=== PATIENT | female | born 1945 | race Caucasian/White ===

== ENCOUNTER 2018-12-20 07:16 | Inpatient (IN) | payer MEDICARE, OTHER ==
[2018-12-20] MEDS ORDERED: Propofol 1,000 MG/100 ML VIAL IV ONE (07:32)
[2018-12-20 07:42] LABS: Actual Bicarbonate (HCO3a) 24.7 mEq/L (22-28); Analyzer IN Cardio ER; Base Excess (BEa) -0.2 mEq/L (-2.0 to +3.0); CO2 Tension 41.1 mmHg (35.0-45.0); Calcium, Ionized 1.19 mmol/L (1.12-1.30); Carboxyhemoglobin (COHb) 3.7 gm% (0.0-3.0); O2 Tension (PaO2) 127.8 mmHg (> 70.0); Potassium - ABG Lab 4.06 mmol/L (3.70-5.30); Puncture Site LRA
[2018-12-20 07:43] LABS: ALV-art Gradient 20.465 (0-20)
[2018-12-20 07:44] LABS: #Eosinphils 0.1 thou/uL (0.0-0.7); #Monocytes 0.5 thou/uL (0.11-0.59); #Neutrophils 11.1 thou/uL (1.40-6.50); %Eosinophils 0.8 % (0.0-10.0); %Lymphocytes 7.5 % (21.0-51.0); %Monocytes 3.6 % (0.0-10.0); %Neutrophils 88.1 % (42.0-75.0); Hemoglobin 12.2 g/dL (12.0-16.0); Mean Corpuscular HGB CONC 31.4 g/dL (32.0-36.0); Mean Corpuscular Hemoglobin 26.2 pg (27.0-31.0); Mean Corpuscular Volume 83.4 fL (78.0-98.0); Mean Platelet Volume 8.3 fL (7.4-10.4); Platelet Count 230 thou/uL (130-400); RBC Distribution Width 17.2 % (11.5-14.5); Red Blood Cell (RBC) Count 4.67 mill/uL (4.20-5.40); White Blood Cell (WBC) Count 12.6 thou/uL (4.8-10.8)
--- NOTE | 2018-12-20 07:51 | RAD ---
RADIOGRAPH CHEST 1 VIEW: DATE: 12/20/2018 TIME: 7:17 AM HISTORY: 73-year-old female in respiratory failure status post intubation COMPARISON: none FINDINGS: Endotracheal tuber distal tip is approximately 0.5 cm into the right mainstem bronchus. There is tota l opacification of the right upper lobe with superior retraction of the right hilum. There is right hilum enlargement. Tracheal mediastinal shift to the right. No consolidation at the right lower lung zone. Left lung is relatively clear. No cardiomegaly. Left IJ implantable vascular access port distal tip at upper portion of right atrium. NG tube courses through the stomach. No pneumothorax. IMPRESSION: 1. Status post intubation with endotracheal tube at origin of right mainstem bronchus. 2. Total opacification and volume loss of entire right upper lobe. Uncertain how much of this is lunchroom monitor paul and how much is acute, without prior studies for comparison. 3. Possible right hilar mass. 4. Implantable vascular access port. 5. Esophagogastric tube. 6. Left lung is clear.
[2018-12-20] MEDS ORDERED: Fentanyl 100 MCG/2 ML VIAL ONE (07:54)
[2018-12-20] MEDS ORDERED: fentaNYL Citrate/PF 2,000 MCG in Sodium Chloride 0.9% 60 ML IV SCH ×2 (07:59→11:07)
[2018-12-20 08:01] LABS: ALT (SGPT) 89 U/L (8-55); AST (SGOT) 143 U/L (5-34); Albumin 3.4 g/dL (3.4-4.8); Alkaline Phosphatase 111 U/L (40-150); Anion Gap 13 mmol/L (10-20); BUN (Urea Nitrogen) 21 mg/dL (9.8-20.1); Bilirubin, Total 0.2 mg/dL (0.2-1.2); Calc. Creatinine Clearance 0 mL/min (70-130); Calcium 8.7 mg/dL (7.8-10.44); Carbon Dioxide 25 mmol/L (23-31); Chloride 104 mmol/L (98-107); Estimated GFR-MDRD 64; Globulin 2.5 g/dL (2.4-3.5); Glucose 233 mg/dL (83-110); Potassium 4.2 mmol/L (3.5-5.1); Protein, Total 5.9 g/dL (6.0-8.3); Sodium 138 mmol/L (136-145)
[2018-12-20] MEDS ORDERED: methylPREDNISolone Sod Succ/PF 125 MG/2 ML VIAL ONE (08:06)
[2018-12-20] MEDS ORDERED: Lorazepam 2 MG/ML VIAL ONE (08:39)
[2018-12-20] MEDS ORDERED: Albuterol Sulfate 2.5 mg/0.5 ml Neb ONE (08:42)
[2018-12-20] MEDS ORDERED: Albuterol Sulfate 2.5 mg/3 ml Neb ONE ×2 (08:42)
[2018-12-20] MEDS ORDERED: Ondansetron PF 4 MG/2 ML Vial IVP PRN (11:01)
[2018-12-20] MEDS ORDERED: Acetaminophen 325 MG TAB PO PRN (11:01)
[2018-12-20] MEDS ORDERED: Ondansetron ODT 4 MG TAB SL PRN (11:01)
[2018-12-20] MEDS ORDERED: Propofol 1,000 MG/100 ML VIAL IV PRN (11:07)
[2018-12-20] MEDS ORDERED: Propofol BOLUS 1,000 MG/100 ML VIAL IV PRN (11:07)
[2018-12-20] MEDS ORDERED: Fentanyl BOLUS 250 ML IVPB PRN (11:07)
[2018-12-20] MEDS ORDERED: Morphine 2 MG/ML SYRINGE SLOW IVP PRN (11:07)
[2018-12-20] MEDS ORDERED: Ventilator Sedation Protocol 1 EACH FS ONE (11:11)
--- NOTE | 2018-12-20 11:24 | RAD ---
XR Chest 1 View Portable History: Endotracheal tube placement Comparison: Radiograph same day Findings: Endotracheal tube appears to been pulled back slightly above the tiffanie 9 mm. Similar appearance with appears be a large right hilar mass. Volume loss right upper lobe. Left lung relatively clear. Port catheter tip right atrium. Impression: Degenerative tip 9 mm above the tiffanie. Consider retracting 1 cm.
[2018-12-20] MEDS: Sodium Chloride 0.45% 1,000 ML IV SCH (11:45)
[2018-12-20] MEDS ORDERED: methylPREDNISolone Sod Succ 40 MG VIAL IVP SCH (12:00)
[2018-12-20] MEDS ORDERED: methylPREDNISolone Sod Succ/PF 125 MG/2 ML VIAL IVP SCH (12:00)
[2018-12-20] MEDS: Piperacillin/Tazobactam 3.375 GM in Sodium Chloride 0.9% 100 ML IVPB SCH ×2 (12:12→17:24)
[2018-12-20] MEDS: methylPREDNISolone Sod Succ 40 MG VIAL IVP SCH ×2 (12:34→17:30)
--- NOTE | 2018-12-20 14:38 | CON ---
DATE OF CONSULTATION: 12/20/2018 HISTORY OF PRESENT ILLNESS: Laura Ruiz is a 73-year-old female. Apparently, she is followed at [facility] with her oncologist. She presented with respiratory failure, was intubated. I was consulted because of her presence in the Critical Care Unit. She has never been in the hospital here before. PAST MEDICAL HISTORY: Remarkable for: 1. Lung cancer. 2. History of COPD. It is unknown whether she has an other past medical history. SOCIAL HISTORY: She is continuing to smoke reportedly. ALLERGIES: SHE HAS NO REPORTED ALLERGIES. FAMILY HISTORY: Unknown. REVIEW OF SYSTEMS: Not obtainable. She has no family at the bedside. PHYSICAL EXAMINATION: VITAL SIGNS: Heart rate is 84, respiratory rate is per mechanical ventilation, blood pressure is 99/64. HEENT: Pupils are equal. Sclerae are anicteric. NECK: Supple. LUNGS: Remarkable for distant wheezes, long expiratory phase. HEART: Regular rhythm. S1 and S2 are normal. ABDOMEN: Soft and nontender. EXTREMITIES: Without clubbing, cyanosis, or edema. She is sedated for ventilation. LABORATORY DATA: White count 12.6, hemoglobin 12.2, and platelets 230. PH 7.4 , CO2 of 41, and pO2 of 127. Sodium 138, potassium 4.2, chloride 104, bicarb 25, BUN 29, creatinine 0.87, AST is 143, ALT is 89, and alkaline phosphatase is 111. BNP is 229. IMPRESSION: 1. Respiratory failure secondary to chronic obstructive pulmonary disease exacerbation. 2. History of lung cancer. Chest radiograph shows dense atelectasis of the right upper lobe. Her radiograph has the appearance of the lung that has been radiated in the right hilar area. Try to obtain records from [facility]. 3. Ongoing tobacco use. 4. Elevated liver enzymes of unclear etiology. Obviously, metastatic disease is in the differential, but it is not a clinical issue at this time. I will be happy to follow the other physicians caring for. CRITICAL CARE TIME: 30 minutes. Job ID: [id number] MTDD
--- NOTE | 2018-12-20 16:38 | HP ---
PRIMARY CARE PROVIDER: [facility]. CHIEF COMPLAINT: Shortness of breath. HISTORY OF PRESENT ILLNESS: Ms. Ruiz is a 73-year-old lady, who was seen at [facility] on December 20, 2018. Please note, the patient is currently intubated and mechanically ventilated. Therefore, I could not obtain history from the patient. Collateral history was obtained from review of medical records and discussion with emergency room physician. Ms. Ruiz is followed at [facility] and has never been at this facility. She reportedly was lethargic today morning. She took 2 prednisone tablets around 05:45 a.m., because she was feeling short of breath. The patient was reportedly doing well yesterday. She complained of generalized weakness. When EMS arrived, the patient had [place] Coma Scale of 11 and was not responsive. She was intubated and brought to the emergency room. REVIEW OF SYSTEMS: Could not be completed secondary to the patient's nonverbal status. PAST MEDICAL HISTORY: COPD and lung cancer. SURGICAL HISTORY: Unable to obtain. SOCIAL HISTORY: The patient is reportedly a current smoker. Could not obtain information regarding alcohol and recreational drug use. CODE STATUS: Could not be discussed secondary to the patient's nonverbal status. FAMILY HISTORY: Could not obtain. ALLERGIES: 1. ASPIRIN. 2. PENICILLIN. CURRENT MEDICATIONS: Could not be obtained. PHYSICAL EXAMINATION: GENERAL: On examination, Ms. Ruiz is intubated and mechanically ventilated, not in acute distress. VITAL SIGNS: Blood pressure is 106/58, pulse 74, respiratory rate 16, and oxygen saturation 100% on the ventilator. She is afebrile. EYES: No scleral icterus. No conjunctival pallor. ENT: Endotracheal tube in place. Moist mucosal membranes. RESPIRATORY: Accessory muscles of breathing are not active. Chest wall movements are symmetric bilaterally. She has diffuse expiratory wheeze. CARDIOVASCULAR: S1 and S2 are heard, regular. Peripheral pulses are palpable. NEUROLOGIC: Full neurologic examination was not possible secondary to the patient's noncooperation. There is no facial droop. No spontaneous movements of the 4 extremities. Deep tendon reflexes 2+, plantars downgoing bilaterally. MUSCULOSKELETAL: No spontaneous movements in the upper or lower extremities. The patient has swelling of the right lower extremity. SKIN: No rashes or subcutaneous nodules. She does have a left-sided port. LYMPHATIC: No cervical lymphadenopathy. PSYCHIATRIC: Unable to assess mood, affect, or orientation to person, place, or time. LABORATORY DATA: Ms. Ruiz' labs and investigations were reviewed. I reviewed her electrocardiogram, which shows sinus tachycardia, no ST changes to suggest an acute coronary syndrome. I also reviewed her chest x-ray, which showed total opacification and volume loss of entire right upper lobe as well as possible right hilar mass. She has leukocytosis with 12,600 white cells, of which 88.1% are neutrophils. Hemoglobin and platelet counts are normal. Arterial blood gases show pH of 7.4, pCO2 of 41, and pO2 of 127.8. She has normal sodium, normal potassium, elevated blood urea nitrogen of 21, normal creatinine, elevated AST of 143, elevated ALT of 89, normal total bilirubin, normal alkaline phosphatase, and mildly elevated BNP of 229. ASSESSMENT AND PLAN: Ms. Ruiz is a 73-year-old lady, who was seen at [facility] on December 20, 2018. Her problem list includes: 1. Acute respiratory failure: Ms. Ruiz is presenting with acute respiratory failure, most likely secondary to chronic obstructive pulmonary disease exacerbation. She will be admitted to the critical care unit for further management. 2. Chronic obstructive pulmonary disease exacerbation: The patient has been started on steroids, bronchodilators, and antibiotics in the form of Zosyn, which I will continue. 3. Lower extremity swelling: The patient has swelling of the right lower extremity. We will check ultrasound Dopplers to rule out deep vein thrombosis. 4. History of tobacco use: The patient will be started on nicotine replacement therapy. 5. Abnormal liver function tests: The patient has isolated transaminitis. We will check CK level to ensure that there is no muscular damage. Many thanks for allowing me to participate in your patient's care. Please feel free to contact me with any questions or concerns. LEVEL OF RISK: High. LEVEL OF COMPLEXITY: High. Job ID: [id number]
--- NOTE | 2018-12-20 17:39 | ULT ---
Exam: Right lower extremity venous ultrasound with Doppler HISTORY: Edema. COMPARISON: None TECHNIQUE: Grayscale, color flow, Doppler imaging with spectral waveform is performed in the right lo wer extremity venous system FINDINGS: There is compressibility, presence of flow and augmentation in the common femoral vein, femoral vein and popliteal vein. There is flow in the greater saphenous vein, profunda vein. Limited evaluation the posterior tibial vein IMPRESSION: Limited evaluation of the posterior tibial vein. Visualized right lower extremity deep ve nous system does not demonstrate thrombosis.
[2018-12-20] MEDS: Enoxaparin Sodium 40 MG/0.4 ML SYRINGE SC SCH (20:23)
[2018-12-21] MEDS: methylPREDNISolone Sod Succ 40 MG VIAL IVP SCH ×5 (00:10→23:32)
[2018-12-21] MEDS: Piperacillin/Tazobactam 3.375 GM in Sodium Chloride 0.9% 100 ML IVPB SCH ×5 (00:10→23:32)
[2018-12-21] MEDS: Sodium Chloride 0.45% 1,000 ML IV SCH ×2 (04:01→15:00)
[2018-12-21 05:08] LABS: Anion Gap 11 mmol/L (10-20); BUN (Urea Nitrogen) 22 mg/dL (9.8-20.1); Calc. Creatinine Clearance 82 mL/min (70-130); Calcium 8.3 mg/dL (7.8-10.44); Carbon Dioxide 27 mmol/L (23-31); Chloride 104 mmol/L (98-107); Estimated GFR-MDRD 75; Glucose 152 mg/dL (83-110); Sodium 138 mmol/L (136-145)
[2018-12-21 05:09] LABS: Band 10 % (5-11); Hemoglobin 10.8 g/dL (12.0-16.0); Lymphocytes 7 % (21-51); MDiff Complete? YES; Mean Corpuscular HGB CONC 31.9 g/dL (32.0-36.0); Mean Corpuscular Hemoglobin 26.2 pg (27.0-31.0); Mean Corpuscular Volume 82.3 fL (78.0-98.0); Mean Platelet Volume 8.2 fL (7.4-10.4); Monocytes 2 % (0-10); Neutrophil 80 % (42-75); Platelet Count 202 thou/uL (130-400); Reactive Lymphocytes 1 % (0-10); Red Blood Cell (RBC) Count 4.11 mill/uL (4.20-5.40); White Blood Cell (WBC) Count 7.8 thou/uL (4.8-10.8)
[2018-12-21 08:11] LABS: Actual Bicarbonate (HCO3a) 25.6 mEq/L (22-28); Base Excess (BEa) 0.4 mEq/L (-2.0 to +3.0); CO2 Tension 43.7 mmHg (35.0-45.0); Calcium, Ionized 1.13 mmol/L (1.12-1.30); Carboxyhemoglobin (COHb) 0.9 gm% (0.0-3.0); Hemoglobin (Hb) 11.8 g/dL (12.0-16.0); O2 Tension (PaO2) 141.3 mmHg (> 70.0); Potassium - ABG Lab 4.05 mmol/L (3.70-5.30); pH, Arterial 7.39 (7.35-7.45)
--- NOTE | 2018-12-21 08:16 | RAD ---
Exam: Chest one view: HISTORY: Respiratory insufficiency COMPARISON: 12/20/2018 FINDINGS: Persistent volume loss and pleural changes in the right chest. Left subclavian catheter, NG tube, and endotracheal tube remain in place. IMPRESSION: Persistent pleural changes and volume loss in the right chest with stable left support tubes. Continu ed short-term follow-up.
[2018-12-21 08:18] LABS: ALV-art Gradient 89.275 (0-20); Puncture Site RRA
[2018-12-21] MEDS: Nicotine 21 MG PATCH TD SCH (08:41)
[2018-12-21] MEDS ORDERED: Famotidine/PF 20 mg/2ml Vial SLOW IVP SCH (09:00)
--- NOTE | 2018-12-21 09:58 | PRG ---
DATE OF SERVICE: 12/21/2018 SUBJECTIVE: Joseph is sedated for ventilation. OBJECTIVE: VITAL SIGNS: Heart rate is in the 90s, blood pressure 140/82, respiratory rate is per mechanical ventilation, and oximetry is 98. HEENT: Pupils react. NECK: Supple. LUNGS: Distant. HEART: Regular rhythm. S1 and S2 are normal. ABDOMEN: Soft and nontender. EXTREMITIES: Without clubbing, cyanosis, or edema. LABORATORY DATA: White count 7.8, hemoglobin 10.8, and platelets 202. A pH 7.39, CO2 of 43, pO2 of 141, IMV is 16, tidal volume is 500, FiO2 is 40, PEEP of 5, and pressure support of 10. Sodium 138, potassium 4, chloride 104, bicarb 27, BUN 22, creatinine 0.76, and glucose 152. Chest x-ray still shows right upper lobe collapse. IMPRESSION: 1. Lung cancer, presumably status post radiation chemotherapy. We still have not received records from [facility]. 2. Chronic obstructive pulmonary disease with respiratory failure. It is not clear to me what her functional status is. 3. Lower extremity edema, that is asymmetrical, the right lower extremity was larger, so an ultrasound was ordered yesterday by the hospitalist, which did not show any evidence of clots. PLAN: We will continue to follow. She is currently non-weanable. We will try tomorrow to start decreasing ventilatory support and allowing to wake up. Precedex has been added to her sedation today. Critical care is 35 minutes. Job ID: [id number] MTDD
[2018-12-21] MEDS: Lorazepam 2 MG/ML VIAL SLOW IVP PRN (12:11)
--- NOTE | 2018-12-21 20:04 | PDOC.PN ---
- Subjective Encounter Start Date: 12/21/18 Encounter Start Time: 20:00 Subjective: f/u for resp failure likely due to COPD exacerbation on [facility] ventilation. - Objective MAR Reviewed: Yes Vital Signs & Weight: Vital Signs (12 hours) Temp Pulse Resp BP Pulse Ox 12/21/18 20:00 97.7 F 12/21/18 18:10 75 166/87 H 12/21/18 18:00 16 12/21/18 16:00 98.4 F 16 98 12/21/18 14:50 84 168/94 H 12/21/18 14:48 81 16 98 12/21/18 14:00 16 12/21/18 12:00 98.2 F 21 H 12/21/18 10:37 103 H 150/82 H 12/21/18 10:23 89 16 99 12/21/18 10:00 20 Weight Admit Weight 171 lb 1.259 oz Weight 169 lb 5.04 oz Most Recent Monitor Data Heart Rate from ECG 80 NIBP 162/81 NIBP BP-Mean 108 Respiration from ECG 18 SpO2 98 I&O: 12/20/18 12/21/18 12/22/18 06:59 06:59 06:59 Intake Total 1476.4 1877 Output Total 1040 900 Balance 436.4 977 Result Diagrams: 12/21/18 04:22 12/21/18 04:22 Additional Labs: Microbiology 12/20/18 07:43 Urine voided Urine Culture - Preliminary NO GROWTH AT 24 HOURS Laboratory Tests 12/20/18 12/20/18 12/20/18 07:23 07:23 07:23 WBC 12.6 H AST 143 H ALT 89 H B-Natriuretic Peptide 229.7 H Radiology Reviewed by me: Yes (PCXR - volume loss R lung field) EKG Reviewed by me: Yes (Tele - SR) Phys Exam - Physical Examination Constitutional: NAD sedate on [facility] ventilation ETT in places Neck: no nodes, no JVD, supple, full ROM diminished in bases, occasional exp wheeze S1, S2 Cardiovascular: RRR, no significant murmur, no rub, gallop Gastrointestinal: soft, non-tender, no distention, positive bowel sounds Musculoskeletal: pulses present Neurological: moves all 4 limbs Skin: normal turgor, cap refill <2 seconds Dx/Plan (1) Acute respiratory failure with hypoxia Code(s): J96.01 - ACUTE RESPIRATORY FAILURE WITH HYPOXIA Status: Acute Comment: Continue mech ventilation, wean as clinically indicated, sedation per protocol (2) COPD exacerbation Code(s): J44.1 - CHRONIC OBSTRUCTIVE PULMONARY DISEASE W (ACUTE) EXACERBATION Status: Acute Comment: Continue Zosyn, Solumedrol and Duonebs, wean off mech ventilation as clinically indicated (3) Lung cancer Code(s): C34.90 - MALIGNANT NEOPLASM OF UNSP PART OF UNSP BRONCHUS OR LUNG Status: Chronic Qualifiers: Laterality: right Comment: Currently receiving treatment through [facility] system, will return for follow up when resp status stabilizes (4) Tobacco abuse Code(s): Z72.0 - TOBACCO USE Status: Chronic Comment: Tobacco cessation resources - Plan continue antibiotics, social service manager, respiratory therapy, DVT proph w/SCDs Continue pulmonary supportive mgmt -: Continue Duonebs, Solumedrol and Zosyn -: Sedation with Precedex -: Plan for coordination of transfer to [facility] due to insurance coverage at that -: facility * AM lab: BMP, CBC
[2018-12-21] MEDS: Enoxaparin Sodium 40 MG/0.4 ML SYRINGE SC SCH (20:51)
[2018-12-21] MEDS: Famotidine/PF 20 mg/2ml Vial SLOW IVP SCH (20:51)
[2018-12-22] MEDS: Lorazepam 2 MG/ML VIAL SLOW IVP PRN ×3 (01:07→11:59)
[2018-12-22] MEDS: Sodium Chloride 0.45% 1,000 ML IV SCH ×2 (04:29→17:34)
[2018-12-22 04:36] LABS: Anion Gap 12 mmol/L (10-20); BUN (Urea Nitrogen) 25 mg/dL (9.8-20.1); Calc. Creatinine Clearance 82 mL/min (70-130); Calcium 8.9 mg/dL (7.8-10.44); Carbon Dioxide 27 mmol/L (23-31); Chloride 105 mmol/L (98-107); Estimated GFR-MDRD 75; Glucose 208 mg/dL (83-110); Potassium 3.8 mmol/L (3.5-5.1); Sodium 140 mmol/L (136-145)
[2018-12-22 05:07] LABS: Band 5 % (5-11); Hemoglobin 11.8 g/dL (12.0-16.0); Lymphocytes 4 % (21-51); MDiff Complete? YES; Mean Corpuscular HGB CONC 32.1 g/dL (32.0-36.0); Mean Corpuscular Hemoglobin 26.1 pg (27.0-31.0); Mean Corpuscular Volume 81.3 fL (78.0-98.0); Mean Platelet Volume 8.9 fL (7.4-10.4); Monocytes 3 % (0-10); Myelocyte 1 % (0-0); Neutrophil 87 % (42-75); Platelet Count 192 thou/uL (130-400); RBC Distribution Width 16.9 % (11.5-14.5); Red Blood Cell (RBC) Count 4.53 mill/uL (4.20-5.40); White Blood Cell (WBC) Count 6.6 thou/uL (4.8-10.8)
[2018-12-22] MEDS: Piperacillin/Tazobactam 3.375 GM in Sodium Chloride 0.9% 100 ML IVPB SCH ×3 (05:36→17:34)
[2018-12-22] MEDS: methylPREDNISolone Sod Succ 40 MG VIAL IVP SCH ×3 (05:36→17:35)
[2018-12-22 07:21] LABS: Base Excess (BEa) 3.4 mEq/L (-2.0 to +3.0); CO2 Tension 42.9 mmHg (35.0-45.0); Carboxyhemoglobin (COHb) 0.9 gm% (0.0-3.0); Hemoglobin (Hb) 12.4 g/dL (12.0-16.0); O2 Tension (PaO2) 106.7 mmHg (> 70.0); pH, Arterial 7.43 (7.35-7.45)
[2018-12-22 07:22] LABS: ALV-art Gradient 53.575 (0-20); Calcium, Ionized 1.14 mmol/L (1.12-1.30); Puncture Site RRA
--- NOTE | 2018-12-22 08:16 | RAD ---
RADIOGRAPH CHEST 1 VIEW: DATE: 12/22/2018 TIME: 5:00 AM HISTORY: 73-year-old female in respiratory failure, on ventilation. COMPARISON: 12/21/2018 5:17 AM FINDINGS: No interval change. IMPRESSION: 1) no interval change. 2) endotracheal tube, left IJ implantable vascular access port, NG tube,. 3) chronic right lung volume loss. Total opacification of right upper lung zone, possibly right upper lobectomy, with superior retraction of right hilum. 4) left lung clear. 5) no cardiomegaly.
[2018-12-22] MEDS: Famotidine/PF 20 mg/2ml Vial SLOW IVP SCH ×2 (08:50→21:08)
[2018-12-22] MEDS: Nicotine 21 MG PATCH TD SCH (08:50)
--- NOTE | 2018-12-22 11:47 | PRG ---
DATE OF SERVICE: 12/22/2018 SUBJECTIVE: Ms. Ruiz' son is in the room when I rounded today. He is requesting that she be transferred to [facility]. In my opinion, she is stable for transfer. OBJECTIVE: VITAL SIGNS: She is afebrile, heart rate is 88, blood pressure 145/78, respiratory rate is 23, and oximetry is 98. HEENT: Pupils reactive. NECK: Supple. LUNGS: Remarkable for distant wheezes. HEART: Regular rhythm. ABDOMEN: Soft and nontender. EXTREMITIES: Without clubbing, cyanosis, or edema. NEUROLOGIC: Grossly nonfocal. When her sedation is decreased, she coughs and is agitated. CHEST RADIOGRAPHS: Unchanged. IMPRESSION: 1. History of lung cancer. Son is unaware of what treatment she had, but I am guessing she had chemo on radiation. 2. Chronic obstructive pulmonary disease exacerbation, leading to mechanical ventilation. 3. Ongoing tobacco use up until this admission. 4. Lower extremity asymmetry with a negative Doppler. 5. Blood gas today shows pH of 7.43, CO2 of 40, PO2 of 106. Ventilatory rate of 16 with tidal volume of 500. Airway pressures are fine. 6. I explained some of the marked dramatically decrease in ventilatory support over the next 24 hours if she was staying here, but if she is being transferred, they can make those adjustments once the transfer is complete. CRITICAL CARE TIME: 30 minutes. Job ID: [id number]
--- NOTE | 2018-12-22 16:11 | PDOC.PN ---
- Subjective Encounter Start Date: 12/22/18 Encounter Start Time: 16:10 Subjective: no new changes. -: remains intubated - Objective MAR Reviewed: Yes Vital Signs & Weight: Vital Signs (12 hours) Temp Pulse Resp BP Pulse Ox 12/22/18 15:03 83 154/91 H 12/22/18 15:02 83 26 H 98 12/22/18 14:00 16 12/22/18 12:00 99 F 16 12/22/18 11:00 99 F 12/22/18 10:54 89 145/78 H 12/22/18 10:53 88 23 H 98 12/22/18 10:00 16 12/22/18 08:00 99 F 24 H 98 12/22/18 07:00 99 F 12/22/18 06:39 82 157/85 H 12/22/18 06:38 79 16 98 12/22/18 06:00 16 Weight Admit Weight 171 lb 1.259 oz Weight 169 lb 1.513 oz Most Recent Monitor Data Heart Rate from ECG 83 NIBP 154/91 NIBP BP-Mean 112 Respiration from ECG 24 SpO2 98 I&O: 12/21/18 12/22/18 12/23/18 06:59 06:59 06:59 Intake Total 1476.4 3555 Output Total 1040 2075 1655 Balance 436.4 1480 -1655 Result Diagrams: 12/22/18 03:54 12/22/18 03:54 Additional Labs: Microbiology 12/20/18 07:43 Urine voided Urine Culture - Preliminary NO GROWTH AT 24 HOURS Phys Exam - Physical Examination Constitutional: NAD intubated HEENT: moist MMs ETT Neck: no nodes, no JVD, supple, full ROM Respiratory: no wheezing, no rales Cardiovascular: RRR Gastrointestinal: soft, non-tender, no distention, positive bowel sounds Musculoskeletal: no edema, pulses present sedated Dx/Plan (1) Acute respiratory failure with hypoxia Code(s): J96.01 - ACUTE RESPIRATORY FAILURE WITH HYPOXIA Status: Acute Comment: Continue mech ventilation, wean as clinically indicated, sedation per protocol (2) COPD exacerbation Code(s): J44.1 - CHRONIC OBSTRUCTIVE PULMONARY DISEASE W (ACUTE) EXACERBATION Status: Acute Comment: Continue Zosyn, Solumedrol and Duonebs, wean off mech ventilation as clinically indicated (3) Lung cancer Code(s): C34.90 - MALIGNANT NEOPLASM OF UNSP PART OF UNSP BRONCHUS OR LUNG Status: Chronic Qualifiers: Laterality: right Comment: Currently receiving treatment through [facility], will return for follow up when resp status stabilizes (4) Tobacco abuse Code(s): Z72.0 - TOBACCO USE Status: Chronic Comment: Tobacco cessation resources - Plan respiratory therapy, incentive spirometry, DVT proph w/SCDs cont supportive care * . Review of Systems - Medications/Allergies Allergies/Adverse Reactions: Allergies Allergy/AdvReac Type Severity Reaction Status Date / Time No Allergy Information Allergy Verified 12/20/18 15:50 Available Medications: Current Medications Albuterol/Ipratropium (Duoneb) 3 ml NEB [id number] JAYCE Last Admin: 12/22/18 15:02 Dose: 3 ml Enoxaparin Sodium (Lovenox) 40 mg SC 2100 JAYCE Last Admin: 12/21/18 20:51 Dose: 40 mg Famotidine (Pepcid) 20 mg SLOW IVP BID JAYCE Last Admin: 12/22/18 08:50 Dose: 20 mg Fentanyl Citrate 2,000 mcg/ (Sodium Chloride) 100 mls @ 0 mls/hr IV INF JAYCE; Protocol Stop: 01/19/19 11:07 Fentanyl Citrate (Fentanyl Bolus) 250 mls @ 0 mls/hr IVPB PRN PRN PRN Reason: Breakthrough pain/agitation Stop: 01/19/19 11:07 Piperacillin Sod/Tazobactam (Sod 3.375 gm/ Sodium Chloride) 100 mls @ 200 mls/ hr IVPB Q6HR JAYCE Last Admin: 12/22/18 11:59 Dose: 100 mls Sodium Chloride (1/2 Normal Saline) 1,000 mls @ 75 mls/hr IV .[id number] JAYCE Last Admin: 12/22/18 04:29 Dose: 1,000 mls Dexmedetomidine HCl 400 mcg/ (Sodium Chloride) 100 mls @ 0 mls/hr IVPB INF JAYCE ; Protocol Last Admin: 12/22/18 10:38 Dose: 100 mls Lorazepam (Ativan) 2 mg SLOW IVP Q1H PRN PRN Reason: Breakthrough agitation Stop: 01/19/19 11:07 Last Admin: 12/22/18 11:59 Dose: 2 mg Methylprednisolone Sodium Succinate (Solu-Medrol) 40 mg IVP Q6HR [facility] Last Admin: 12/22/18 12:00 Dose: 40 mg Morphine Sulfate (Morphine) 2 mg SLOW IVP Q1H PRN PRN Reason: BREAKTHROUGH PAIN/Agitation Stop: 01/19/19 11:07 Nicotine (Nicoderm Patch) 21 mg TD DAILY [facility] Last Admin: 12/22/18 08:50 Dose: 21 mg Propofol (Diprivan) 1,000 mg IV INF PRN; Protocol PRN Reason: TO ACHIEVE GOAL RASS Stop: 01/19/19 11:07 Last Admin: 12/20/18 20:23 Dose: 1,000 mg Propofol (Diprivan Bolus) 20 mg IV Q5MIN PRN PRN Reason: BREAKTHROUGH AGITATION Stop: 01/19/19 11:07
[2018-12-22] MEDS: Enoxaparin Sodium 40 MG/0.4 ML SYRINGE SC SCH (21:08)
[2018-12-23] MEDS: Piperacillin/Tazobactam 3.375 GM in Sodium Chloride 0.9% 100 ML IVPB SCH ×5 (00:04→23:10)
[2018-12-23] MEDS: methylPREDNISolone Sod Succ 40 MG VIAL IVP SCH ×5 (00:05→23:06)
[2018-12-23] MEDS: Lorazepam 2 MG/ML VIAL SLOW IVP PRN (03:08)
[2018-12-23 05:36] LABS: Actual Bicarbonate (HCO3a) 28.6 mEq/L (22-28); Base Excess (BEa) 4.7 mEq/L (-2.0 to +3.0); CO2 Tension 39.8 mmHg (35.0-45.0); Carboxyhemoglobin (COHb) 1.1 gm% (0.0-3.0); Hemoglobin (Hb) 12.5 g/dL (12.0-16.0); O2 Tension (PaO2) 99.9 mmHg (> 70.0); pH, Arterial 7.47 (7.35-7.45)
[2018-12-23 05:37] LABS: Calcium, Ionized 1.09 mmol/L (1.12-1.30); Puncture Site RRA
[2018-12-23 07:12] LABS: Hemoglobin 12.4 g/dL (12.0-16.0); Mean Corpuscular HGB CONC 31.5 g/dL (32.0-36.0); Mean Corpuscular Hemoglobin 25.6 pg (27.0-31.0); Mean Corpuscular Volume 81.2 fL (78.0-98.0); Mean Platelet Volume 8.8 fL (7.4-10.4); Platelet Count 184 thou/uL (130-400); Red Blood Cell (RBC) Count 4.85 mill/uL (4.20-5.40); White Blood Cell (WBC) Count 8.9 thou/uL (4.8-10.8)
[2018-12-23 07:30] LABS: Anion Gap 14 mmol/L (10-20); BUN (Urea Nitrogen) 25 mg/dL (9.8-20.1); Calc. Creatinine Clearance 85 mL/min (70-130); Calcium 8.6 mg/dL (7.8-10.44); Carbon Dioxide 28 mmol/L (23-31); Chloride 101 mmol/L (98-107); Estimated GFR-MDRD 79; Glucose 186 mg/dL (83-110); Sodium 139 mmol/L (136-145)
[2018-12-23 07:57] LABS: Band 1 % (5-11); Lymphocytes 2 % (21-51); MDiff Complete? YES; Monocytes 2 % (0-10); Neutrophil 95 % (42-75); RBC Morphology Normal
--- NOTE | 2018-12-23 08:19 | RAD ---
PORTABLE CHEST: Date: 12/23/18 INDICATION: CCU follow-up. Shortness of breath. Ventilator follow-up. COMPARISON: 12/22/18. FINDINGS: ET tube and NG tube unchanged. Opacification of right apical region is unchanged with aeration of the right lower lung. Left lung remains clear. IMPRESSION: No interval change from yesterday. POS: JOSE R
[2018-12-23] MEDS: Nicotine 21 MG PATCH TD SCH (08:24)
[2018-12-23] MEDS: Famotidine/PF 20 mg/2ml Vial SLOW IVP SCH ×2 (08:25→20:22)
[2018-12-23] MEDS: Sodium Chloride 0.45% 1,000 ML IV SCH ×2 (09:10→15:13)
--- NOTE | 2018-12-23 14:27 | PDOC.PN ---
- Subjective Encounter Start Date: 12/23/18 Encounter Start Time: 14:25 (late entry) Subjective: pt intubated at the time of my exam & no family at bedside -: extubated since them as per RN notes - Objective MAR Reviewed: Yes Vital Signs & Weight: Vital Signs (12 hours) Temp Pulse Resp BP Pulse Ox 12/23/18 12:00 98.3 F 24 H 12/23/18 10:25 82 170/98 H 12/23/18 10:24 82 16 98 12/23/18 09:59 16 12/23/18 08:00 98.3 F 12/23/18 07:44 21 H 12/23/18 06:27 80 16 167/93 H 98 12/23/18 05:00 99.2 F Weight Admit Weight 171 lb 1.259 oz Weight 167 lb 12.348 oz Most Recent Monitor Data Heart Rate from ECG 105 NIBP 145/79 NIBP BP-Mean 101 Respiration from ECG 24 SpO2 91 I&O: 12/22/18 12/23/18 12/24/18 06:59 06:59 06:59 Intake Total 3555 3557 100 Output Total 2075 4990 1535 Balance 1480 -0213 -1432 Result Diagrams: 12/23/18 06:52 12/23/18 06:52 Additional Labs: Microbiology 12/20/18 07:43 Urine voided Urine Culture - Final NO GROWTH AT 48 HOURS Phys Exam - Physical Examination Constitutional: NAD HEENT: PERRLA, moist MMs, sclera anicteric Neck: no JVD Respiratory: no wheezing, no rales Cardiovascular: RRR Gastrointestinal: soft Musculoskeletal: no edema, pulses present Skin: no rash Dx/Plan (1) Acute respiratory failure with hypoxia Code(s): J96.01 - ACUTE RESPIRATORY FAILURE WITH HYPOXIA Status: Acute Comment: Extubated this afternoon , (2) COPD exacerbation Code(s): J44.1 - CHRONIC OBSTRUCTIVE PULMONARY DISEASE W (ACUTE) EXACERBATION Status: Acute Comment: Continue Zosyn, Solumedrol and Duonebs, (3) Lung cancer Code(s): C34.90 - MALIGNANT NEOPLASM OF UNSP PART OF UNSP BRONCHUS OR LUNG Status: Chronic Qualifiers: Laterality: right Comment: Currently receiving treatment through [facility], will return for follow up when resp status stabilizes (4) Tobacco abuse Code(s): Z72.0 - TOBACCO USE Status: Chronic Comment: Tobacco cessation resources - Plan continue antibiotics, respiratory therapy, incentive spirometry, DVT proph w/ SCDs supportive care -: am labs -: Cont steroids, nebs,empiric ABx. * . Review of Systems - Medications/Allergies Allergies/Adverse Reactions: Allergies Allergy/AdvReac Type Severity Reaction Status Date / Time aspirin Allergy Verified 12/23/18 10:04 Penicillins Allergy Verified 12/23/18 10:04 Medications: Current Medications Albuterol/Ipratropium (Duoneb) 3 ml NEB [id number] JAYCE Last Admin: 12/23/18 10:24 Dose: 3 ml Enoxaparin Sodium (Lovenox) 40 mg SC 2100 JAYCE Last Admin: 12/22/18 21:08 Dose: 40 mg Famotidine (Pepcid) 20 mg SLOW IVP BID JAYCE Last Admin: 12/23/18 08:25 Dose: 20 mg Fentanyl Citrate 2,000 mcg/ (Sodium Chloride) 100 mls @ 0 mls/hr IV INF JAYCE; Protocol Stop: 01/19/19 11:07 Fentanyl Citrate (Fentanyl Bolus) 250 mls @ 0 mls/hr IVPB PRN PRN PRN Reason: Breakthrough pain/agitation Stop: 01/19/19 11:07 Piperacillin Sod/Tazobactam (Sod 3.375 gm/ Sodium Chloride) 100 mls @ 200 mls/ hr IVPB Q6HR [facility] Last Admin: 12/23/18 11:24 Dose: 100 mls Sodium Chloride (1/2 Normal Saline) 1,000 mls @ 75 mls/hr IV .[id number] JAYCE Last Admin: 12/23/18 09:10 Dose: Not Given Dexmedetomidine HCl 400 mcg/ (Sodium Chloride) 100 mls @ 0 mls/hr IVPB INF JAYCE ; Protocol Last Admin: 12/23/18 11:24 Dose: 100 mls Lorazepam (Ativan) 2 mg SLOW IVP Q1H PRN PRN Reason: Breakthrough agitation Stop: 01/19/19 11:07 Last Admin: 12/23/18 03:08 Dose: 2 mg Methylprednisolone Sodium Succinate (Solu-Medrol) 40 mg IVP Q6HR JAYEC Last Admin: 12/23/18 11:24 Dose: 40 mg Morphine Sulfate (Morphine) 2 mg SLOW IVP Q1H PRN PRN Reason: BREAKTHROUGH PAIN/Agitation Stop: 01/19/19 11:07 Last Admin: 12/23/18 09:20 Dose: 2 mg Nicotine (Nicoderm Patch) 21 mg TD DAILY JAYCE Last Admin: 12/23/18 08:24 Dose: 21 mg Propofol (Diprivan) 1,000 mg IV INF PRN; Protocol PRN Reason: TO ACHIEVE GOAL RASS Stop: 01/19/19 11:07 Last Admin: 12/20/18 20:23 Dose: 1,000 mg Propofol (Diprivan Bolus) 20 mg IV Q5MIN PRN PRN Reason: BREAKTHROUGH AGITATION Stop: 01/19/19 11:07
--- NOTE | 2018-12-23 17:30 | PRG ---
DATE OF SERVICE: 12/23/2018 SUBJECTIVE: Ms. Ruiz was awake and alert, on Precedex this morning. She was in no distress. She gave quick thumbs up with both thumbs while on the spontaneous breathing trial. OBJECTIVE: VITAL SIGNS: Her vital signs were stable. She had no hemodynamic instability overnight. Blood pressure was 172/91, heart rate was 81, respiratory rate was 16, and minute volume was 8 L a minute. LUNGS: She had a short exhale time. Her lungs are distant, clear. HEART: Regular rhythm. S1 and S2 are normal. ABDOMEN: Soft and nontender. EXTREMITIES: Without clubbing, cyanosis, or edema. LABORATORY DATA: White count is 8.9, hemoglobin 12.4, platelets 184. Sodium 139, potassium 4, chloride 101, bicarbonate 20, BUN 25, creatinine 0.73. IMPRESSION: 1. Respiratory failure, acute on chronic with hypoxemia, on home O2. 2. Status post treatment for lung cancer with chemoradiation from what I can tell. 3. Bronchitis and chronic obstructive pulmonary disease exacerbation leading to intubation, feels she is back close to her baseline. 4. I felt she was a candidate for extubation. This has been done successfully. CRITICAL CARE TIME: 30 minutes. Job ID: [id number]
[2018-12-23] MEDS: Enoxaparin Sodium 40 MG/0.4 ML SYRINGE SC SCH (20:22)
[2018-12-24] MEDS ORDERED: Acetaminophen 325 MG TAB PO PRN (01:32)
[2018-12-24] MEDS: Piperacillin/Tazobactam 3.375 GM in Sodium Chloride 0.9% 100 ML IVPB SCH (05:03)
[2018-12-24] MEDS: methylPREDNISolone Sod Succ 40 MG VIAL IVP SCH ×2 (05:04→12:52)
[2018-12-24 06:09] LABS: Anion Gap 12 mmol/L (10-20); BUN (Urea Nitrogen) 27 mg/dL (9.8-20.1); Calc. Creatinine Clearance 77 mL/min (70-130); Calcium 9.3 mg/dL (7.8-10.44); Carbon Dioxide 33 mmol/L (23-31); Chloride 100 mmol/L (98-107); Estimated GFR-MDRD 70; Glucose 170 mg/dL (83-110); Potassium 4.1 mmol/L (3.5-5.1); Sodium 141 mmol/L (136-145)
[2018-12-24] MEDS: Levothyroxine Sodium 125 MCG TAB PO SCH (06:29)
[2018-12-24 06:51] LABS: Hemoglobin 12.9 g/dL (12.0-16.0); Mean Corpuscular HGB CONC 31.8 g/dL (32.0-36.0); Mean Corpuscular Hemoglobin 25.6 pg (27.0-31.0); Mean Corpuscular Volume 80.4 fL (78.0-98.0); Mean Platelet Volume 8.9 fL (7.4-10.4); Platelet Count 196 thou/uL (130-400); RBC Distribution Width 17.1 % (11.5-14.5); Red Blood Cell (RBC) Count 5.06 mill/uL (4.20-5.40); White Blood Cell (WBC) Count 9.3 thou/uL (4.8-10.8)
[2018-12-24 07:08] LABS: Band 1 % (5-11); Lymphocytes 6 % (21-51); MDiff Complete? YES; Neutrophil 89 % (42-75); Polychromasia SLIGHT = 2-3 cells (100X) (0-2/hpf); Reactive Lymphocytes 4 % (0-10)
[2018-12-24] MEDS: Famotidine/PF 20 mg/2ml Vial SLOW IVP SCH (08:38)
[2018-12-24] MEDS: Nicotine 21 MG PATCH TD SCH (08:38)
--- NOTE | 2018-12-24 08:46 | RAD ---
PORTABLE CHEST: HISTORY: CCU and ventilator followup. COMPARISON: 12/23/2018. FINDINGS/IMPRESSION: ET tube and NG tube have been removed. MediPort catheter remains in position. Opacification in the right apical region is again noted. Left lung remains clear. No acute interval change. POS: H
[2018-12-24] MEDS: Pramipexole Di-HCl 0.25 MG TAB PO SCH ×2 (15:27→20:20)
--- NOTE | 2018-12-24 16:36 | PRG ---
DATE OF SERVICE: 12/24/2018 SUBJECTIVE: Ms. Ruiz is in no distress. She was walking in the [facility] with [facility] Therapy. She then came back and sat in the bedside chair and said she wanted to go home. OBJECTIVE: VITAL SIGNS: Blood pressure is 154/88, heart rate is 100, respiratory rate is 15, oximetry is 98% on 4 L. LUNGS: Clear. HEART: Regular rhythm. S1 and S2 are normal. ABDOMEN: Soft and nontender. EXTREMITIES: Without clubbing, cyanosis, or edema. LABORATORY DATA: White count 9.3, hemoglobin 12.9, platelets 196. Sodium 141, potassium 4.1, chloride 100, bicarb 33, BUN 27, creatinine 0.81, glucose 170. IMPRESSION: 1. Status post mechanical ventilation for chronic obstructive pulmonary disease exacerbation. 2. History of chemoradiation for right upper lobe lung cancer. 3. Tobacco use up until admission. I counseled her again about smoking. PLAN: She is stable to move out of critical care unit. I suspect she will be a candidate for discharge in the morning. She can follow up with Dr. Lindsey, her siebel developer at [facility] hopefully within a week after discharge. Critical care time is 35 minutes. Job ID: [id number] MTDD
--- NOTE | 2018-12-24 17:10 | PDOC.PN ---
- Subjective Encounter Start Date: 12/24/18 Encounter Start Time: 17:08 Subjective: feels much better today.extubated yesterday and sitting up in chair -: wants to go home - Objective MAR Reviewed: Yes Vital Signs & Weight: Vital Signs (12 hours) Temp Pulse Pulse Pulse Resp BP BP 12/24/18 15:23 100 15 12/24/18 15:00 97.9 F 12/24/18 11:35 102 H 15 12/24/18 11:00 98.1 F 12/24/18 10:30 110 H 113 H 174/100 H 173/92 H 12/24/18 09:57 107 H 115 H 156/80 H 174/100 H 12/24/18 08:09 12/24/18 08:07 99 17 12/24/18 07:52 12/24/18 07:00 98.3 F Pulse Ox Pulse Ox Pulse Ox 12/24/18 15:23 98 12/24/18 15:00 12/24/18 11:35 97 12/24/18 11:00 12/24/18 10:30 94 L 94 L 12/24/18 09:57 93 L 93 L 12/24/18 08:09 97 12/24/18 08:07 97 12/24/18 07:52 97 12/24/18 07:00 Weight Admit Weight 171 lb 1.259 oz Weight 169 lb 5 oz Most Recent Monitor Data Heart Rate from ECG 103 NIBP 154/88 NIBP BP-Mean 110 Respiration from ECG 25 SpO2 92 I&O: 12/23/18 12/24/18 12/25/18 06:59 06:59 06:59 Intake Total 3559 1933 1430 Output Total 7750 4769 800 Balance -1433 -947 630 Result Diagrams: 12/24/18 05:28 12/24/18 05:28 Additional Labs: Microbiology 12/20/18 07:43 Urine voided Urine Culture - Final NO GROWTH AT 48 HOURS Phys Exam - Physical Examination Constitutional: NAD HEENT: PERRLA, moist MMs, sclera anicteric, TM's clear, oral pharynx no lesions , 2+ tonsils Neck: no nodes, no JVD, supple, full ROM Respiratory: no rales, no rhonchi, wheezing present, clear to auscultation bilateral Cardiovascular: RRR, no significant murmur Gastrointestinal: soft, non-tender, no distention, positive bowel sounds Musculoskeletal: no edema, pulses present Neurological: non-focal, normal sensation, moves all 4 limbs Psychiatric: normal affect, A&O x 3 Skin: no rash Dx/Plan (1) Acute respiratory failure with hypoxia Code(s): J96.01 - ACUTE RESPIRATORY FAILURE WITH HYPOXIA Status: Acute Comment: Extubated 12/23/18.cont supportive care.on nebs,steroids.chronic O2 at home and chronic steroids at home (2) COPD exacerbation Code(s): J44.1 - CHRONIC OBSTRUCTIVE PULMONARY DISEASE W (ACUTE) EXACERBATION Status: Acute Comment: Continue Zosyn, Solumedrol and Duonebs, (3) Lung cancer Code(s): C34.90 - MALIGNANT NEOPLASM OF UNSP PART OF UNSP BRONCHUS OR LUNG Status: Chronic Qualifiers: Laterality: right Comment: Currently receiving treatment through [facility], will return for follow up when resp status stabilizes (4) Tobacco abuse Code(s): Z72.0 - TOBACCO USE Status: Chronic Comment: Tobacco cessation resources - Plan DVT proph w/SCDs clinically better -: Home in am most likely when Ok w PCCM -: plan discussed w pt in detail * . Review of Systems - Review of Systems Constitutional: negative: fever, chills, sweats, weakness, malaise, other ENT: negative: Ear Pain, Ear Discharge, Nose Pain, Nose Discharge, Nose Congestion, Mouth Pain, Mouth Swelling, Throat Pain, Throat Swelling, Other Respiratory: negative: Cough, Dry, Shortness of Breath, Hemoptysis, SOB with Excertion, Pleuritic Pain, Sputum, Wheezing Cardiovascular: negative: chest pain, palpitations, orthopnea, paroxysmal nocturnal dyspnea, edema, light headedness, other Gastrointestinal: negative: Nausea, Vomiting, Abdominal Pain, Diarrhea, Constipation, Melena, Hematochezia, Other Genitourinary: negative: Dysuria, Frequency, Incontinence, Hematuria, Retention , Other Musculoskeletal: negative: Neck Pain, Shoulder Pain, Arm Pain, Back Pain, Hand Pain, Leg Pain, Foot Pain, Other Neurological: negative: Weakness, Numbness, Incoordination, Change in Speech, Confusion, Seizures, Other - Medications/Allergies Allergies/Adverse Reactions: Allergies Allergy/AdvReac Type Severity Reaction Status Date / Time aspirin Allergy Verified 12/23/18 10:04 Penicillins Allergy Verified 12/23/18 10:04 Medications: Current Medications Acetaminophen (Tylenol) 650 mg PO Q4H PRN PRN Reason: Fever/Mild Pain Last Admin: 12/24/18 15:27 Dose: 650 mg Albuterol/Ipratropium (Duoneb) 3 ml NEB [id number] [facility] Last Admin: 12/24/18 15:23 Dose: 3 ml Amoxicillin/Clavulanate Potassium (Augmentin) 875 mg PO BID [facility] Enoxaparin Sodium (Lovenox) 40 mg SC 2100 [facility] Last Admin: 12/23/18 20:22 Dose: 40 mg Levothyroxine Sodium (Synthroid) 125 mcg PO 0600 [facility] Last Admin: 12/24/18 06:29 Dose: 125 mcg Nicotine (Nicoderm Patch) 21 mg TD DAILY [facility] Last Admin: 12/24/18 08:38 Dose: 21 mg Pantoprazole Sodium (Protonix) 40 mg PO DAILY [facility] Pramipexole Dihydrochloride (Mirapex) 0.25 mg PO TID [facility] Last Admin: 12/24/18 15:27 Dose: 0.25 mg Prednisone (Prednisone) 40 mg PO QAM-WM [facility] Sodium Chloride (Flush - Normal Saline) 10 ml IVF Q12HR [facility] Last Admin: 12/24/18 08:39 Dose: 10 ml Sodium Chloride (Flush - Normal Saline) 10 ml IVF PRN PRN PRN Reason: Saline Flush
[2018-12-24] MEDS: Enoxaparin Sodium 40 MG/0.4 ML SYRINGE SC SCH (20:20)
[2018-12-24] MEDS: Amoxicillin/Potassium Clav 875 MG TAB PO SCH (20:20)
[2018-12-25] MEDS: Levothyroxine Sodium 125 MCG TAB PO SCH (05:37)
[2018-12-25] MEDS: Nicotine 21 MG PATCH TD SCH (07:51)
[2018-12-25] MEDS: Amoxicillin/Potassium Clav 875 MG TAB PO SCH (07:52)
[2018-12-25] MEDS ORDERED: predniSONE 20 MG TAB PO SCH (08:00)
[2018-12-25] MEDS ORDERED: Levothyroxine Sodium 125 MCG TAB PO SCH (09:00)
[2018-12-25] MEDS: Pramipexole Di-HCl 0.25 MG TAB PO SCH (09:32)
--- NOTE | 2018-12-25 10:04 | PRG ---
DATE OF SERVICE: 12/25/2018 SUBJECTIVE: Laura Ruiz is doing well. She wants to go home. OBJECTIVE: VITAL SIGNS: Stable. She is afebrile. Heart rate 96, respiratory rate is 20, oximetry is 95% on 3 L, and blood pressure 117/84. LUNGS: Clear. HEART: Regular rhythm. ABDOMEN: Soft. IMPRESSION: 1. Chronic obstructive pulmonary disease exacerbation leading to mechanical ventilation. 2. [id number] respiratory failure with hypoxemia and hypercarbia. 3. Status post chemo and radiation for lung cancer. a. She should taper of her prednisone over the last next 10 days. She should follow up with her jewelry finisher next week. I do believe she is stable for discharge. 4. We spent about 10 minutes discussing her daughter. Her daughter was paralyzed in a rollover accident in [place] when she was I believe in her early 30s and just 2 years ago. Her mom was her primary last cleaner, she is missed dearly. 5. I will see Ms. Ruiz as needed in the future. Job ID: [id number]
[2018-12-25 14:58] VITALS: BP 131/72; TEMP 97.9
[2018-12-25 15:06] VITALS: BMI 28.1
--- NOTE | 2018-12-25 22:51 | DIS ---
DATE OF ADMISSION: 12/20/2018 DATE OF DISCHARGE: 12/25/2018 DISCHARGE DIAGNOSES: 1. Acute on chronic hypoxemic hypercapnic respiratory failure. 2. Chronic obstructive pulmonary disease exacerbation, improved. 3. Lung cancer under current treatment. 4. Tobacco abuse. CONSULTATIONS: Dr. Wright with Pulmonology Critical Care Service. PERTINENT LAB AND X-RAY FINDINGS: BNP 230, AST 143, ALT of 89. CBC showed a white blood cell count ranged between 6.6 to 12.6, hemoglobin ranged between 10.8 to 12.9. Urine culture dated 12/20/2018, showed no growth at 48 hours. Portable chest x-ray dated 12/20/2018, showed endotracheal tube in appropriate positioning. Total opacification and volume loss of the entire right upper lobe. Questionable right hilar mass. Portable chest x-ray dated 12/23/2018, showed opacification of the right apical region, unchanged from previous chest imaging. HOSPITAL COURSE: The patient was initially admitted after presenting with acute dyspnea in the context of chronic obstructive pulmonary disease and history of lung cancer, undergoing current treatment. The patient was noted with acute respiratory failure secondary to chronic obstructive pulmonary disease exacerbation and placed on mechanical ventilation. The patient was given empiric antibiotic therapy with Zosyn and IV Solu-Medrol. The patient underwent evaluation by the Pulmonary Critical Care Service with recommendations for continued aggressive pulmonary supportive measures in addition to IV Solu-Medrol. The patient received bronchodilator therapy as well as antibiotic coverage, eventually extubating on 12/23/2018. The patient clinically stabilized and remained on baseline oxygen requirement at 3 L/minute by nasal cannula. The patient transitioned to the medical floor and remained clinically stable through the remainder of the hospital course. I have examined the patient at the time of discharge and discussed followup instructions. The patient verbalized understanding and agreement ready for discharge on 12/25/2018. DISCHARGE MEDICATIONS: 1. Levothyroxine 125 mcg p.o. daily. 2. Protonix 40 mg p.o. daily. 3. Mirapex 0.25 mg p.o. t.i.d. 4. Augmentin 875 mg p.o. b.i.d. x5 days. 5. Prednisone 20 mg 2 tablets p.o. daily x5 days followed by 1 tab p.o. daily x5 days. FOLLOWUP: The patient may follow up with her primary care provider, Dr. Ramsey Fuentes, within 7 days of discharge. CONDITION ON DISCHARGE: Stable. ACTIVITY: Ad-bryan. DIET: Heart healthy. CODE STATUS: Full. DISPOSITION: Home, 12/25/2018. Total time preparing and coordinating discharge, 33 minutes. Job ID: [id number]
--- NOTE | 2018-12-26 10:59 | EKG ---
Test Reason : Blood Pressure : / mmHG Vent. Rate : 101 BPM Atrial Rate : 101 BPM P-R Int : 124 ms QRS Dur : 100 ms QT Int : 362 ms P-R-T Axes : 070 -02 239 degrees QTc Int : 469 ms Sinus tachycardia Right atrial enlargement Abnormal ECG Confirmed by RIO MESSINA ([id number]), department editor CATIE HUBER ([id number]) on 12/26/2018 10:59:19 AM Referred By: Confirmed By:RIO MESSINA
== END 2018-12-25 15:11 | disposition home or self-care (01) | DRG 208 ==
LOC: ERS 07:16 → CCU 10:28 → T4-B 12-24 22:42
PROVIDERS: ADMIT Internal Medicine; ATTEND Internal Medicine
PROC: 5A1945Z Respiratory Ventilation, 24-96 Consecutive Hours (ICD-10-PCS; principal; 2018-12-20)
DX: J96.21 Acute and chronic respiratory failure with hypoxia (principal); J44.1 Chronic obstructive pulmonary disease with (acute) exacerbation; C34.91 Malignant neoplasm of unspecified part of right bronchus or lung; J98.11 Atelectasis; F17.210 Nicotine dependence, cigarettes, uncomplicated; J96.22 Acute and chronic respiratory failure with hypercapnia; R40.2421 Glasgow coma scale score 9-12, in the field [EMT or ambulance]; Z88.8 Allergy status to other drugs, medicaments and biological substances; Z88.0 Allergy status to penicillin; Z79.52 Long term (current) use of systemic steroids; Z79.899 Other long term (current) drug therapy
CPT/HCPCS: 36415; 51702; 71045; 80048; 80053; 82550; 82805; 83880; 84484; 85007; 85025; 85027; 87086; 93005; 94002; 94003; 94640; 94760; 96365; 96366; 96375; 96376; J1650; J2060; J2270; J2543; J2704; J2920; J2930; J3010; J3490; J7512; J7611; J7620; S0028